=== PATIENT | female | born 1950 | race American Indian/Alaskan Native ===

== ENCOUNTER 2018-11-14 04:01 | Emergency (ER) | payer MEDICARE ==
[2018-11-14 07:58] VITALS: BP 169/102
--- NOTE | 2018-11-14 08:24 | Emergency Department Report ---
- General Chief Complaint: Wound/Laceration Stated Complaint: SKIN INFECTION Source: patient Mode of arrival: Ambulatory Limitations: No Limitations - History of Present Illness Initial Comments: This is a 68-year-old female who presents with a wound to the right lower extremity for 3 months. Past medical history prediabetes, osteoarthritis, hypertension, and bronchitis. Patient states she completed a round of antibiotics after being seen in this emergency room. She was referred to a specialist but able to follow up with them. She reported wound improves it continues to drain and very tender to touch. She denies fever, numbness or tingling, or weakness. Onset/Timin -: month(s) Extremity Location: Right: Lower Leg Place: home Patient Tetanus UTD: Yes Context: accidental Associated Symptoms: pain. denies: loss of feeling/numbness, suspect foreign body present, unable to move injured part, weakness followed by dizziness, nausea/vomiting, fever - Related Data Home Medications Medication Instructions Recorded Confirmed Last Taken Amoxicillin [Trimox CAP] 500 mg PO BID 12/23/13 12/23/13 12/22/13 Previous Rx's Medication Instructions Recorded Last Taken Type Furosemide [Lasix] 40 mg PO DAILY #10 tablet 12/23/13 Unknown Rx Ibuprofen [Motrin] 800 mg PO Q8HR PRN #15 tablet 08/13/16 Unknown Rx Chlorhexidine Gluconate [Hibiclens] 240 ml TP BID #1 liquid 09/19/18 Unknown Rx Sulfamethoxazole/Trimethoprim 1 each PO ONCE #20 tablet 09/19/18 Unknown Rx [Bactrim DS TAB] Triamter/Hctz 75-50 mg (Nf) 0.5 tab PO QDAY tablet 09/19/18 Unknown Rx [Maxzide 75-50 mg] amLODIPine [Norvasc] 5 mg PO QDAY tablet 09/19/18 Unknown Rx cephALEXin [Keflex] 500 mg PO Q8HR #30 cap 09/19/18 Unknown Rx Amlodipine Besylate [Norvasc] 5 mg PO DAILY #30 tablet 11/14/18 Unknown Rx Sulfamethoxazole/Trimethoprim 1 each PO BID #20 tablet 11/14/18 Unknown Rx [Bactrim DS TAB] Triamterene/Hydrochlorothiazid 1 each PO DAILY #30 tablet 11/14/18 Unknown Rx [Triamterene-Hctz 75-50 mg Tab] Allergies Allergy/AdvReac Type Severity Reaction Status Date / Time No Known Allergies Allergy Verified 12/22/13 23:36 ED Review of Systems ROS: Stated complaint: SKIN INFECTION Other details as noted in HPI Constitutional: denies: chills, fever Respiratory: denies: cough, shortness of breath, wheezing Cardiovascular: denies: chest pain, palpitations Gastrointestinal: denies: abdominal pain, nausea, diarrhea Musculoskeletal: denies: back pain, joint swelling, arthralgia Skin: lesions (wound to RLE). denies: rash Neurological: denies: headache, weakness, paresthesias Psychiatric: denies: anxiety, depression ED Past Medical Hx - Past Medical History Previous Medical History?: Yes Hx Hypertension: Yes Hx CVA: No Hx Heart Attack/AMI: No Hx Congestive Heart Failure: No Hx Diabetes: Yes (borderline) Hx Deep Vein Thrombosis: No Hx Pulmonary Embolism: No Hx GERD: No Hx Liver Disease: No Hx Renal Disease: No Hx Sickle Cell Disease: No Hx Arthritis: Yes (osteoarthritis) Hx Headaches / Migraines: No Hx Seizures: No Hx Kidney Stones: No Hx Psychiatric Treatment: No Hx Asthma: No Hx COPD: No Hx Tuberculosis: No Hx Dementia: No Hx HIV: No Additional medical history: bronchitis - Surgical History Past Surgical History?: Yes Hx Coronary Stent: No Hx Open Heart Surgery: No Hx Pacemaker: No Hx Internal Defibrillator: No Hx Cholecystectomy: No Hx Appendectomy: No Hx Breast Surgery: No Additional Surgical History: D&C - Social History Smoking Status: Former Smoker Substance Use Type: None - Medications Home Medications: Home Medications Medication Instructions Recorded Confirmed Last Taken Type Amoxicillin [Trimox CAP] 500 mg PO BID 12/23/13 12/23/13 12/22/13 History Furosemide [Lasix] 40 mg PO DAILY #10 tablet 12/23/13 Unknown Rx Ibuprofen [Motrin] 800 mg PO Q8HR PRN #15 tablet 08/13/16 Unknown Rx Chlorhexidine Gluconate [Hibiclens] 240 ml TP BID #1 liquid 09/19/18 Unknown Rx Sulfamethoxazole/Trimethoprim 1 each PO ONCE #20 tablet 09/19/18 Unknown Rx [Bactrim DS TAB] Triamter/Hctz 75-50 mg (Nf) 0.5 tab PO QDAY tablet 09/19/18 Unknown Rx [Maxzide 75-50 mg] amLODIPine [Norvasc] 5 mg PO QDAY tablet 09/19/18 Unknown Rx cephALEXin [Keflex] 500 mg PO Q8HR #30 cap 09/19/18 Unknown Rx Amlodipine Besylate [Norvasc] 5 mg PO DAILY #30 tablet 11/14/18 Unknown Rx Sulfamethoxazole/Trimethoprim 1 each PO BID #20 tablet 11/14/18 Unknown Rx [Bactrim DS TAB] Triamterene/Hydrochlorothiazid 1 each PO DAILY #30 tablet 11/14/18 Unknown Rx [Triamterene-Hctz 75-50 mg Tab] ED Physical Exam - General Limitations: No Limitations General appearance: alert, in no apparent distress, obese (morbidly obese) - Respiratory Respiratory exam: Present: normal lung sounds bilaterally. Absent: respiratory distress - Cardiovascular Cardiovascular Exam: Present: regular rate, normal rhythm. Absent: systolic murmur, diastolic murmur, rubs, gallop - GI/Abdominal GI/Abdominal exam: Present: soft, normal bowel sounds - Neurological Exam Neurological exam: Present: alert, oriented X3 - Psychiatric Psychiatric exam: Present: normal affect, normal mood - Skin Skin exam: Present: warm, dry, normal color, other (5 cm wound above right lateral malleolus, tenderness, central cellulitis, warmth, purulent drainage). Absent: intact, rash, cyanosis, diaphoretic, petechiae, pallor, abrasion, ecchymosis ED Course Vital Signs 11/14/18 11/14/18 11/14/18 04:09 07:57 10:44 Temperature 97.5 F L Pulse Rate 121 H 111 H 111 H Respiratory 20 Rate Blood Pressure 175/95 169/102 Blood Pressure 169/102 [Left] O2 Sat by Pulse 99 Oximetry 11/14/18 11:40 Temperature 98.1 F Pulse Rate 109 H Respiratory 18 Rate Blood Pressure Blood Pressure [Left] O2 Sat by Pulse 97 Oximetry ED Medical Decision Making - Lab Data Result diagrams: 11/14/18 08:35 11/14/18 08:29 Lab Results 11/14/18 11/14/18 11/14/18 Range/Units 04:27 08:29 08:35 WBC 7.1 (4.5-11.0) K/mm3 RBC 5.07 H (3.65-5.03) M/mm3 Hgb 13.2 (10.1-14.3) gm/dl Hct 41.5 (30.3-42.9) % MCV 82 (79-97) fl MCH 26 L (28-32) pg MCHC 32 (30-34) % RDW 15.3 H (13.2-15.2) % Plt Count 312 (140-440) K/mm3 Lymph % (Auto) 17.1 (13.4-35.0) % [place] % (Auto) 10.0 H (0.0-7.3) % Eos % (Auto) 2.2 (0.0-4.3) % Baso % (Auto) 0.6 (0.0-1.8) % Lymph # 1.2 (1.2-5.4) K/mm3 [place] # 0.7 (0.0-0.8) K/mm3 Eos # 0.2 (0.0-0.4) K/mm3 Baso # 0.0 (0.0-0.1) K/mm3 Seg Neutrophils % 70.1 H (40.0-70.0) % Seg Neutrophils # 5.0 (1.8-7.7) K/mm3 Sodium 142 (137-145) mmol/L Potassium 4.6 (3.6-5.0) mmol/L Chloride 105.9 (98-107) mmol/L Carbon Dioxide 24 (22-30) mmol/L Anion Gap 17 mmol/L BUN 16 (7-17) mg/dL Creatinine 0.7 (0.7-1.2) mg/dL Estimated GFR > 60 ml/min BUN/Creatinine Ratio 23 % Glucose 96 (65-100) mg/dL POC Glucose 102 (70-105) Calcium 9.0 (8.4-10.2) mg/dL Total Bilirubin 0.20 (0.1-1.2) mg/dL AST 19 (5-40) units/L ALT 15 (7-56) units/L Alkaline Phosphatase 87 (35-129) units/L Total Protein 7.7 (6.3-8.2) g/dL Albumin 3.5 L (3.9-5) g/dL Albumin/Globulin Ratio 0.8 % - Medical Decision Making Patient was examined by me. Blood pressure elevated and tachycardic on arrival. Patient is in no acute distress. Obtained a CMP and CBC. Both labs are unremarkable. On focused exam there is a 5 cm wound above the right lateral malleolus, tenderness, central cellulitis, and warmth. Start Bactrim DS 1 tab by mouth twice a day 10 days. Start Maxide 7550 milligrams by mouth daily and amlodipine 5 mg by mouth daily. Blood pressure and heart rate trending down, patient is asymptomatic hypertension. Referral to wound care for continued care. Patient informed of results and emergency room plan. Patient discharged home in stable condition. Follow up with PCP in 2-3 days. Critical care attestation.: If time is entered above; I have spent that time in minutes in the direct care of this critically ill patient, excluding procedure time. ED Disposition Clinical Impression: Asymptomatic hypertension Wound of right leg Qualifiers: Encounter type: subsequent encounter Qualified Code(s): S81.801D - Unspecified open wound, right lower leg, subsequent encounter Disposition: TO HOME OR SELFCARE Is pt being admited?: No Does the pt Need Aspirin: No Condition: Stable Instructions: Wound Infection (ED), Acute Wound Care (ED), Hypertension (ED) Additional Instructions: Complete full course of antibiotics as prescribed. Follow-up with wound care in the next 24-48 hours. Encourage stop smoking to reduce cardiovascular risk. Moderate caffeine consumption is acceptable. Begin and maintain aerobic exercise, with a goal of at least 30 minutes of moderate intensity, dynamic aerobic exercise (walking, jogging, cycling, or swimming) 5 days per week to total 150 minutes as tolerated or recommended by a physician. Take medication daily as prescribed. Follow up with Primary Care Provider in 1 week. Prescriptions: Amlodipine Besylate [Norvasc] 5 mg PO DAILY #30 tablet Sulfamethoxazole/Trimethoprim [Bactrim DS TAB] 1 each PO BID #20 tablet Triamterene/Hydrochlorothiazid [Triamterene-Hctz 75-50 mg Tab] 1 each PO DAILY #30 tablet Referrals: [facility] [Outside] - 3-5 Days [facility] [Provider Group] - 3-5 Days [facility] [Provider Group] - 3-5 Days Time of Disposition: 10:13
[2018-11-14 08:42] LABS: Basophils % (Auto) 0.6 % (0.0-1.8); Eosinophils # (Auto) 0.2 K/mm3 (0.0-0.4); Eosinophils % (Auto) 2.2 % (0.0-4.3); Hematocrit 41.5 % (30.3-42.9); Hemoglobin 13.2 gm/dl (10.1-14.3); Lymphocytes # (Auto) 1.2 K/mm3 (1.2-5.4); Lymphocytes % (Auto) 17.1 % (13.4-35.0); Mean Corpuscular HGB Conc 32 % (30-34); Mean Corpuscular Volume 82 fl (79-97); Monocytes # (Auto) 0.7 K/mm3 (0.0-0.8); Platelet Count 312 K/mm3 (140-440); Red Blood Count 5.07 M/mm3 (3.65-5.03); Red Cell Distribution Width 15.3 % (13.2-15.2)
[2018-11-14 08:45] LABS: Mean Corpuscular Hemoglobin 26 pg (28-32)
[2018-11-14 09:03] LABS: Alanine Aminotransferase 15 units/L (7-56); Albumin 3.5 g/dL (3.9-5); BUN/Creatinine Ratio 23; Blood Urea Nitrogen 16 mg/dL (7-17); Hemolysis Index 29
[2018-11-14] MEDS ORDERED: NORVASC PO ONE (10:06)
[2018-11-14] MEDS ORDERED: NORCO 5/325 PO ONE (11:44)
== END 2018-11-14 12:13 | disposition home or self-care (01) ==
LOC: ED 04:01
DX: S81.801D Unspecified open wound, right lower leg, subsequent encounter (principal); I10 Essential (primary) hypertension; E11.9 Type 2 diabetes mellitus without complications; Z87.891 Personal history of nicotine dependence; X58.XXXD Exposure to other specified factors, subsequent encounter
CPT/HCPCS: 36415; 80053; 82962; 85025; 99283

== ENCOUNTER 2019-01-22 11:18 | Outpatient (CLI) | payer MEDICARE ==
[2019-01-22] MEDS ORDERED: XYLOCAINE TOPICAL 4% TP ONE (12:00)
[2019-01-23] MEDS ORDERED: AD OINTMENT TP SCH (10:00)
== END 2019-01-22 11:19 | disposition home or self-care (01) ==
LOC: WOUND 11:18
PROVIDERS: ATTEND Surgery
DX: L97.818 Non-pressure chronic ulcer of other part of right lower leg with other specified severity (principal); I10 Essential (primary) hypertension; M81.0 Age-related osteoporosis without current pathological fracture; J42 Unspecified chronic bronchitis; Z87.891 Personal history of nicotine dependence
CPT/HCPCS: 99214; G0463

== ENCOUNTER 2019-12-14 15:32 | Emergency (ER) | payer MEDICARE ==
--- NOTE | 2019-12-14 16:04 | Emergency Department Report ---
Blank Doc - Documentation Documentation: 69-year-old female that presents with neck pain and throacic spine pain. This initial assessment/diagnostic orders/clinical plan/treatment(s) is/are subject to change based on patient's health status, clinical progression and re- assessment by fellow clinical providers in the ED. Further treatment and workup at subsequent clinical providers discretion. Patient/guardians urged not to elope from the ED as their condition may be serious if not clinically assessed and managed. Initial orders include: 1- Patient sent to [facility] for further evaluation and treatment 2- patient has cervical collar 3- Xrays
[2019-12-14] MEDS ORDERED: ACETAMINOPHEN 325 MG TAB PO ONE (16:05)
[2019-12-14] MEDS ORDERED: ACETAMINOPHEN 325 MG TAB ONE (16:07)
--- NOTE | 2019-12-14 17:19 | XRay Report ---
LUMBAR SPINE 3 VIEWS INDICATION / CLINICAL INFORMATION: pain. COMPARISON: None available. FINDINGS: VERTEBRAE: No fracture. 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 Mild discogenic degenerative disease L2-4 and L5-S1. FACET JOINTS:Moderate facet degenerative disease L3-S1. ADDITIONAL FINDINGS: None. Signer Name: Raji Kidd MD Signed: 12/14/2019 5:14 PM Workstation Name: [id number]
--- NOTE | 2019-12-14 17:22 | XRay Report ---
CERVICAL SPINE 4 VIEWS INDICATION / CLINICAL INFORMATION: pain. COMPARISON: None available. FINDINGS: VERTEBRAE: No fracture. No significant malalignment. DISC SPACES:Moderately advanced multilevel discogenic degenerative disease extends from C3-T1. PREVERTEBRAL SOFT TISSUES:No significant abnormality. ADDITIONAL FINDINGS: None. Signer Name: Raji Kidd MD Signed: 12/14/2019 5:18 PM Workstation Name: [id number]
[2019-12-14] MEDS ORDERED: HYDROcodone/ACETAMINOPHEN 5-325 MG TAB PO STA (23:12)
--- NOTE | 2019-12-14 23:20 | Emergency Department Report ---
ED Back Pain/Injury HPI - General Chief Complaint: Neck Pain/Injury Stated Complaint: NECK PAIN Time Seen by Provider: 12/14/19 16:02 Source: patient Limitations: No Limitations - History of Present Illness Initial Comments: 69 y/o female was in store when freezer door fell of hidges and landed on her back and down to the ground. denies head trauma or LOC MD Complaint: back pain Similar Symptoms Previously: No Radiation: none Severity: mild Quality: dull Consistency: constant Improves With: none Worsens With: none Associated Symptoms: denies other symptoms. denies: chest pain, numbness, constipation, headaches, abdominal pain, seizure, syncope - Related Data Home Medications Medication Instructions Recorded Confirmed Last Taken Amoxicillin [Trimox CAP] 500 mg PO BID 12/23/13 12/23/13 12/22/13 Previous Rx's Medication Instructions Recorded Last Taken Type Furosemide [Lasix] 40 mg PO DAILY #10 tablet 12/23/13 Unknown Rx Ibuprofen [Motrin] 800 mg PO Q8HR PRN #15 tablet 08/13/16 Unknown Rx Chlorhexidine Gluconate [Hibiclens] 240 ml TP BID #1 liquid 09/19/18 Unknown Rx Sulfamethoxazole/Trimethoprim 1 each PO ONCE #20 tablet 09/19/18 Unknown Rx [Bactrim DS TAB] Triamter/Hctz 75-50 mg (Nf) 0.5 tab PO QDAY tablet 09/19/18 Unknown Rx [Maxzide 75-50 mg] amLODIPine 5 mg PO QDAY tablet 09/19/18 Unknown Rx cephALEXin [Keflex] 500 mg PO Q8HR #30 cap 09/19/18 Unknown Rx Amlodipine Besylate [Norvasc] 5 mg PO DAILY #30 tablet 11/14/18 Unknown Rx Sulfamethoxazole/Trimethoprim 1 each PO BID #20 tablet 11/14/18 Unknown Rx [Bactrim DS TAB] Triamterene/Hydrochlorothiazid 1 each PO DAILY #30 tablet 11/14/18 Unknown Rx [Triamterene-Hctz 75-50 mg Tab] Ketorolac [Toradol] 10 mg PO Q6H PRN #10 tablet 12/14/19 Unknown Rx methOCARBAMOL [Robaxin TAB] 750 mg PO Q8H #15 tablet 12/14/19 Unknown Rx Allergies Allergy/AdvReac Type Severity Reaction Status Date / Time No Known Allergies Allergy Verified 12/22/13 23:36 ED Review of Systems ROS: Stated complaint: NECK PAIN Other details as noted in HPI Comment: All other systems reviewed and negative ED Past Medical Hx - Past Medical History Previous Medical History?: Yes Hx Hypertension: Yes Hx CVA: No Hx Heart Attack/AMI: No Hx Congestive Heart Failure: No Hx Diabetes: Yes (borderline) Hx Deep Vein Thrombosis: No Hx Pulmonary Embolism: No Hx GERD: No Hx Liver Disease: No Hx Renal Disease: No Hx Sickle Cell Disease: No Hx Arthritis: Yes (osteoarthritis) Hx Headaches / Migraines: No Hx Seizures: No Hx Kidney Stones: No Hx Psychiatric Treatment: No Hx Asthma: No Hx COPD: No Hx Tuberculosis: No Hx Dementia: No Hx HIV: No Additional medical history: bronchitis - Surgical History Past Surgical History?: Yes Hx Coronary Stent: No Hx Open Heart Surgery: No Hx Pacemaker: No Hx Internal Defibrillator: No Hx Cholecystectomy: No Hx Appendectomy: No Hx Breast Surgery: No Additional Surgical History: D&C - Social History Smoking Status: Never Smoker Substance Use Type: None - Medications Home Medications: Home Medications Medication Instructions Recorded Confirmed Last Taken Type Amoxicillin [Trimox CAP] 500 mg PO BID 12/23/13 12/23/13 12/22/13 History Furosemide [Lasix] 40 mg PO DAILY #10 tablet 12/23/13 Unknown Rx Ibuprofen [Motrin] 800 mg PO Q8HR PRN #15 tablet 08/13/16 Unknown Rx Chlorhexidine Gluconate [Hibiclens] 240 ml TP BID #1 liquid 09/19/18 Unknown Rx Sulfamethoxazole/Trimethoprim 1 each PO ONCE #20 tablet 09/19/18 Unknown Rx [Bactrim DS TAB] Triamter/Hctz 75-50 mg (Nf) 0.5 tab PO QDAY tablet 09/19/18 Unknown Rx [Maxzide 75-50 mg] amLODIPine 5 mg PO QDAY tablet 09/19/18 Unknown Rx cephALEXin [Keflex] 500 mg PO Q8HR #30 cap 09/19/18 Unknown Rx Amlodipine Besylate [Norvasc] 5 mg PO DAILY #30 tablet 11/14/18 Unknown Rx Sulfamethoxazole/Trimethoprim 1 each PO BID #20 tablet 11/14/18 Unknown Rx [Bactrim DS TAB] Triamterene/Hydrochlorothiazid 1 each PO DAILY #30 tablet 11/14/18 Unknown Rx [Triamterene-Hctz 75-50 mg Tab] Ketorolac [Toradol] 10 mg PO Q6H PRN #10 tablet 12/14/19 Unknown Rx methOCARBAMOL [Robaxin TAB] 750 mg PO Q8H #15 tablet 12/14/19 Unknown Rx ED Physical Exam - General Limitations: No Limitations General appearance: alert, in no apparent distress - Head Head exam: Present: atraumatic, normocephalic - Eye Eye exam: Present: normal appearance, PERRL, EOMI Pupils: Present: normal accommodation - ENT ENT exam: Present: normal exam, normal orophraynx, mucous membranes moist, TM's normal bilaterally - Neck Neck exam: Present: normal inspection, tenderness. Absent: meningismus, full ROM, lymphadenopathy, thyromegaly - Respiratory Respiratory exam: Present: normal lung sounds bilaterally. Absent: respiratory distress, rales, rhonchi, chest wall tenderness, accessory muscle use, decreased breath sounds - Cardiovascular Cardiovascular Exam: Present: regular rate, normal rhythm. Absent: systolic murmur, diastolic murmur, rubs, gallop - GI/Abdominal GI/Abdominal exam: Present: soft, normal bowel sounds - Extremities Exam Extremities exam: Present: normal inspection, normal capillary refill - Back Exam Back exam: Present: normal inspection, paraspinal tenderness, vertebral tenderness. Absent: CVA tenderness (R), CVA tenderness (L) - Neurological Exam Neurological exam: Present: alert, oriented X3 - Psychiatric Psychiatric exam: Present: normal affect, normal mood - Skin Skin exam: Present: warm, dry, intact, normal color. Absent: rash ED Course Vital Signs 12/14/19 12/14/19 12/14/19 16:04 17:12 21:07 Temperature 98.1 F 97.9 F Pulse Rate 105 H 100 H Respiratory 20 18 18 Rate Blood Pressure 182/112 211/106 O2 Sat by Pulse 97 97 Oximetry ED Medical Decision Making - Radiology Data Radiology results: report reviewed [facility] [address] [place] [address] XRay Report Signed Patient: MARLIN DIAZ MR#: [id number] : 1950 Acct:[id number] Age/Sex: 69 / F ADM Date: 12/14/19 Loc: ED Attending Dr: Ordering Physician: SEGUNDO GTZ NP Date of Service: 12/14/19 Procedure(s): XR spine lumbosacral 2-3V Accession Number(s): [id number] cc: SEGUNDO GTZ NP Fluoro Time In Minutes: LUMBAR SPINE 3 VIEWS INDICATION / CLINICAL INFORMATION: pain. COMPARISON: None available. FINDINGS: VERTEBRAE: No fracture. 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 Mild discogenic degenerative disease L2- 4 and L5-S1. FACET JOINTS:Moderate facet degenerative disease L3-S1. ADDITIONAL FINDINGS: None. Signer Name: Raji Kidd MD Signed: 12/14/2019 5:14 PM Workstation Name: [id number] Transcribed By: TL Dictated By: Raji Kidd MD Electronically Authenticated By: Raji Kidd MD Signed Date/Time: 12/14/19 1714 - Medical Decision Making This patient presents with back pain most consistent with lumbago. Differential diagnoses includes lumbago versus musculoskeletal spasm / strain versus sciatica. No back pain red flags on history or physical. Presentation not consistent with malignancy (lack of history of malignancy, lack of B symptoms), fracture (no trauma, no bony tenderness to palpation), cauda equina (no bowel or urinary incontinence/retention, no saddle anesthesia, no distal weakness), AAA, viscus perforation , pulmonary embolism, renal colic, pyelonephritis (afebrile, no CVAT, no urinary symptoms). xray of lumbar region shows no fracture or acute injury Plan: pain control, supportive care, reassess Critical care attestation.: If time is entered above; I have spent that time in minutes in the direct care of this critically ill patient, excluding procedure time. ED Disposition Clinical Impression: Lumbago, Neck contusion Disposition: TO HOME OR SELFCARE Is pt being admited?: No Does the pt Need Aspirin: No Condition: Stable Instructions: Acute Low Back Pain (ED), Arthralgia (ED), Back Pain (ED) Prescriptions: methOCARBAMOL [Robaxin TAB] 750 mg PO Q8H #15 tablet Ketorolac [Toradol] 10 mg PO Q6H PRN #10 tablet PRN Reason: Pain Referrals: PRIMARY CARE, [Primary Care Provider] - 3-5 Days RJ PALMER MD [Staff Physician] - 3-5 Days
[2019-12-14 23:56] VITALS: BP 166/91
== END 2019-12-15 00:20 | disposition home or self-care (01) ==
LOC: ED 15:32
DX: S10.93XA Contusion of unspecified part of neck, initial encounter (principal); M54.5 Low back pain; I10 Essential (primary) hypertension; E11.9 Type 2 diabetes mellitus without complications; M19.90 Unspecified osteoarthritis, unspecified site; Z98.890 Other specified postprocedural states; Z79.899 Other long term (current) drug therapy; X58.XXXA Exposure to other specified factors, initial encounter; Y93.89 Activity, other specified; Y92.89 Other specified places as the place of occurrence of the external cause; Y99.8 Other external cause status
CPT/HCPCS: 72040; 72100; 99283

== ENCOUNTER 2022-02-11 11:08 | Emergency (ER) | payer MEDICARE ==
[2022-02-11] MEDS ORDERED: ASPIRIN 325 MG TAB PO ONE (11:37)
[2022-02-11] MEDS ORDERED: METOPROLOL TARTRATE 5 MG/5 ML INJ IV ONE (11:54)
[2022-02-11 12:27] LABS: Basophils % (Auto) 0.6 % (0.0-1.8); Eosinophils # (Auto) 0.1 K/mm3 (0.0-0.4); Eosinophils % (Auto) 1.6 % (0.0-4.3); Hematocrit 42.6 % (30.3-42.9); Hemoglobin 13.4 gm/dl (10.1-14.3); Lymphocytes # (Auto) 0.8 K/mm3 (1.2-5.4); Mean Corpuscular HGB Conc 32 % (30-34); Mean Corpuscular Volume 82 fl (79-97); Monocytes # (Auto) 0.5 K/mm3 (0.0-0.8); Monocytes % (Auto) 8.8 % (0.0-7.3); Platelet Count 291 K/mm3 (140-440); Red Blood Count 5.17 M/mm3 (3.65-5.03); Red Cell Distribution Width 14.7 % (13.2-15.2)
[2022-02-11 12:36] LABS: INR 0.97 (0.87-1.13)
[2022-02-11 12:37] LABS: Partial Thromboplastin Time 32.9 Sec. (24.2-36.6)
[2022-02-11 13:16] LABS: Alanine Aminotransferase 10 units/L (7-56); Albumin 3.8 g/dL (3.9-5); Blood Urea Nitrogen 14 mg/dL (7-17); Calcium 9.7 mg/dL (8.4-10.2); Hemolysis Index 11
[2022-02-11 13:19] LABS: BUN/Creatinine Ratio 20
--- NOTE | 2022-02-11 13:55 | XRay Report ---
CHEST 1 VIEW 02/11/2022 12:46 PM INDICATION / CLINICAL INFORMATION: chest pain. COMPARISON: None available. FINDINGS: SUPPORT DEVICES: None. HEART / MEDIASTINUM: No significant abnormality. LUNGS / PLEURA: No significant pulmonary or pleural abnormality. No pneumothorax. ADDITIONAL FINDINGS: No significant additional findings. IMPRESSION: 1. No acute findings. Signer Name: Ricky Peace MD Signed: 02/11/2022 1:51 PM Workstation Name: [id number]
--- NOTE | 2022-02-11 14:33 | Emergency Department Report ---
ED Chest Pain HPI - General Chief Complaint: Chest Pain Stated Complaint: CHEST PAIN Time Seen by Provider: 02/11/22 11:47 Source: patient Mode of arrival: Ambulatory Limitations: Physical Limitation - History of Present Illness Initial Comments: chest pain off and on for over a month , pt had irrgial heart beat in rtiage fib , no histoyr of that , no sob, no fever no cough , pt hasn;t taken her meds over monoths -: Gradual, month(s) Onset: during rest Pain Location: epigastric Pain Radiation: none Severity scale (0 -10): 5 Improves With: nothing Worsens With: nothing Treatments Prior to Arrival: none - Related Data Home Medications Medication Instructions Recorded Confirmed Last Taken Amoxicillin [Trimox CAP] 500 mg PO BID 12/23/13 12/23/13 12/22/13 Previous Rx's Medication Instructions Recorded Last Taken Type Furosemide [Lasix] 40 mg PO DAILY #10 tablet 12/23/13 Unknown Rx Ibuprofen [Motrin] 800 mg PO Q8HR PRN #15 tablet 08/13/16 Unknown Rx Chlorhexidine Gluconate [Hibiclens] 240 ml TP BID #1 liquid 09/19/18 Unknown Rx Sulfamethoxazole/Trimethoprim 1 each PO ONCE #20 tablet 09/19/18 Unknown Rx [Bactrim DS TAB] Triamter/Hctz 75-50 mg (Nf) 0.5 tab PO QDAY tablet 09/19/18 Unknown Rx [Maxzide 75-50 mg] amLODIPine 5 mg PO QDAY tablet 09/19/18 Unknown Rx cephALEXin [Keflex] 500 mg PO Q8HR #30 cap 09/19/18 Unknown Rx Amlodipine Besylate [Norvasc] 5 mg PO DAILY #30 tablet 11/14/18 Unknown Rx Sulfamethoxazole/Trimethoprim 1 each PO BID #20 tablet 11/14/18 Unknown Rx [Bactrim DS TAB] Triamterene/Hydrochlorothiazid 1 each PO DAILY #30 tablet 11/14/18 Unknown Rx [Triamterene-Hctz 75-50 mg Tab] Ketorolac [Toradol] 10 mg PO Q6H PRN #10 tablet 12/14/19 Unknown Rx methOCARBAMOL [Robaxin TAB] 750 mg PO Q8H #15 tablet 12/14/19 Unknown Rx Allergies Allergy/AdvReac Type Severity Reaction Status Date / Time No Known Allergies Allergy Verified 12/22/13 23:36 Heart Score - HEART Score History: Slightly suspicious EKG: Normal Age: > 65 Risk factors: 1-2 risk factors Troponin: < normal limit HEART Score: 3 - EKG Read Time Time EKG Completed: 14:33 EKG Read Time: 14:33 - Critical Actions Critical Actions: 0-3 pts:0.9-1.7%risk of adverse cardiac event.Candidate for discharge ED Review of Systems ROS: Stated complaint: CHEST PAIN Other details as noted in HPI Constitutional: denies: chills, fever Eyes: denies: eye pain, eye discharge, vision change ENT: denies: ear pain, throat pain Respiratory: denies: cough, shortness of breath, wheezing Cardiovascular: denies: chest pain, palpitations Endocrine: no symptoms reported Gastrointestinal: denies: abdominal pain, nausea, diarrhea Genitourinary: denies: urgency, dysuria, discharge Musculoskeletal: denies: back pain, joint swelling, arthralgia Skin: denies: rash, lesions Neurological: denies: headache, weakness, paresthesias Psychiatric: denies: anxiety, depression Hematological/Lymphatic: denies: easy bleeding, easy bruising ED Past Medical Hx - Past Medical History Previous Medical History?: Yes Hx Hypertension: Yes Hx CVA: No Hx Heart Attack/AMI: No Hx Congestive Heart Failure: No Hx Diabetes: Yes (borderline) Hx Deep Vein Thrombosis: No Hx Pulmonary Embolism: No Hx GERD: No Hx Liver Disease: No Hx Renal Disease: No Hx Sickle Cell Disease: No Hx Arthritis: Yes (osteoarthritis) Hx Headaches / Migraines: No Hx Seizures: No Hx Kidney Stones: No Hx Psychiatric Treatment: No Hx Asthma: No Hx COPD: No Hx Tuberculosis: No Hx Dementia: No Hx HIV: No Additional medical history: bronchitis - Surgical History Past Surgical History?: Yes Hx Coronary Stent: No Hx Open Heart Surgery: No Hx Pacemaker: No Hx Internal Defibrillator: No Hx Cholecystectomy: No Hx Appendectomy: No Hx Breast Surgery: No Additional Surgical History: D&C - Social History Smoking Status: Never Smoker Substance Use Type: None - Medications Home Medications: Home Medications Medication Instructions Recorded Confirmed Last Taken Type Amoxicillin [Trimox CAP] 500 mg PO BID 12/23/13 12/23/13 12/22/13 History Furosemide [Lasix] 40 mg PO DAILY #10 tablet 12/23/13 Unknown Rx Ibuprofen [Motrin] 800 mg PO Q8HR PRN #15 tablet 08/13/16 Unknown Rx Chlorhexidine Gluconate [Hibiclens] 240 ml TP BID #1 liquid 09/19/18 Unknown Rx Sulfamethoxazole/Trimethoprim 1 each PO ONCE #20 tablet 09/19/18 Unknown Rx [Bactrim DS TAB] Triamter/Hctz 75-50 mg (Nf) 0.5 tab PO QDAY tablet 09/19/18 Unknown Rx [Maxzide 75-50 mg] amLODIPine 5 mg PO QDAY tablet 09/19/18 Unknown Rx cephALEXin [Keflex] 500 mg PO Q8HR #30 cap 09/19/18 Unknown Rx Amlodipine Besylate [Norvasc] 5 mg PO DAILY #30 tablet 11/14/18 Unknown Rx Sulfamethoxazole/Trimethoprim 1 each PO BID #20 tablet 11/14/18 Unknown Rx [Bactrim DS TAB] Triamterene/Hydrochlorothiazid 1 each PO DAILY #30 tablet 11/14/18 Unknown Rx [Triamterene-Hctz 75-50 mg Tab] Ketorolac [Toradol] 10 mg PO Q6H PRN #10 tablet 12/14/19 Unknown Rx methOCARBAMOL [Robaxin TAB] 750 mg PO Q8H #15 tablet 12/14/19 Unknown Rx ED Physical Exam - General Limitations: Physical Limitation General appearance: alert, in no apparent distress - Head Head exam: Present: atraumatic, normocephalic - Eye Eye exam: Present: normal appearance - ENT ENT exam: Present: mucous membranes moist - Neck Neck exam: Present: normal inspection - Respiratory Respiratory exam: Present: normal lung sounds bilaterally. Absent: respiratory distress - Cardiovascular Cardiovascular Exam: Present: tachycardia, irregular rhythm. Absent: systolic murmur, diastolic murmur, rubs, gallop - GI/Abdominal GI/Abdominal exam: Present: soft, normal bowel sounds - Extremities Exam Extremities exam: Present: normal inspection, pedal edema - Back Exam Back exam: Present: normal inspection - Neurological Exam Neurological exam: Present: alert, oriented X3 - Psychiatric Psychiatric exam: Present: normal affect, normal mood - Skin Skin exam: Present: warm, dry, intact, normal color. Absent: rash ED Course Vital Signs 02/11/22 02/11/22 02/11/22 11:34 11:53 12:06 Temperature 98.2 F Pulse Rate 110 H 90 Respiratory 24 Rate Blood Pressure 190/100 Blood Pressure 188/105 [Right] O2 Sat by Pulse 97 100 Oximetry ED Medical Decision Making - Lab Data Result diagrams: 02/11/22 12:10 02/11/22 12:10 - EKG Data -: EKG Interpreted by Me Rate: tachycardia - EKG Data Interpretation: no acute changes 02/11/22 14:29 initial EKG showd afib with rate of 110 , after b blockers it went down to sinus reythm - Radiology Data Radiology results: report reviewed, image reviewed - Medical Decision Making work up unremarkable , b katarina sgiven with conversion back to sinus rythm BP imrpoved , will start B blockers and refer to card OP Critical care attestation.: If time is entered above; I have spent that time in minutes in the direct care of this critically ill patient, excluding procedure time. ED Disposition Clinical Impression: Chest pain, Atrial fibrillation with RVR Disposition: HOME / SELF CARE / HOMELESS Is pt being admited?: No Does the pt Need Aspirin: No Condition: Stable Instructions: Nonspecific Chest Pain, Adult Referrals: RALPH KERN MD [Other] - 3-5 Days SATISH YANCEY MD [Staff Physician] - 3-5 Days
[2022-02-11 15:13] VITALS: BP 164/100
--- NOTE | 2022-02-12 09:35 | Electrocardiograph Report ---
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
--- NOTE | 2022-02-14 08:58 | Electrocardiograph Report ---
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
== END 2022-02-11 15:13 | disposition home or self-care (01) ==
LOC: ED 11:08
DX: I48.20 Chronic atrial fibrillation, unspecified (principal); R07.9 Chest pain, unspecified; I10 Essential (primary) hypertension
CPT/HCPCS: 36415; 71045; 80053; 82550; 83880; 84484; 85025; 85610; 85730; 93005; 96374; 99284; J9280

== ENCOUNTER 2022-02-16 05:45 | Inpatient (IN) | payer MEDICARE ==
[2022-02-16] MEDS ORDERED: ASPIRIN 325 MG TAB PO ONE (06:13)
--- NOTE | 2022-02-16 06:52 | Emergency Department Report ---
ED Chest Pain HPI - General Chief Complaint: Chest Pain Stated Complaint: CHEST PAIN PUI?: No Time Seen by Provider: 02/16/22 06:28 Source: patient, EMS Mode of arrival: Stretcher Limitations: No Limitations - History of Present Illness Initial Comments: Chief complaint: " It feels like a heart attack." HPI: This is a 71-year-old female with history of hypertension who presents with chest pain since Sunday. Patient was evaluated in this ER on Sunday. Patient has sharp heavy pain. Moderately severe. Relieved with nitroglycerin given by EMS. No previous history of cardiac disease. Mother had history of congestive heart failure. MD Complaint: chest pain -: Gradual, days(s) (4 days) Onset: during rest Pain Location: substernal Pain Radiation: none Severity: severe Severity scale (0 -10): 8 Quality: heaviness, sharp Consistency: intermittent, now resolved Improves With: nitroglycerin Worsens With: nothing Treatments Prior to Arrival: aspirin, nitroglycerin - Related Data Previous Rx's Medication Instructions Recorded Last Taken Type Metoprolol [Lopressor TAB] 50 mg PO DAILY #30 02/11/22 02/15/22 09:00 Rx Allergies Allergy/AdvReac Type Severity Reaction Status Date / Time No Known Allergies Allergy Verified 02/16/22 06:09 Heart Score - HEART Score History: Moderately suspicious EKG: Non-specific Age: > 65 Risk factors: 1-2 risk factors Troponin: < normal limit HEART Score: 5 - EKG Read Time Time EKG Completed: 06:18 EKG Read Time: 06:23 - Critical Actions Critical Actions: 4-6 pts:12-16.6% risk of adverse cardiac event. Should be admitted ED Review of Systems ROS: Stated complaint: CHEST PAIN Other details as noted in HPI Comment: All other systems reviewed and negative Constitutional: denies: chills, fever, malaise Respiratory: denies: cough, shortness of breath Cardiovascular: chest pain Gastrointestinal: denies: abdominal pain, nausea, vomiting ED Past Medical Hx - Past Medical History Previous Medical History?: Yes Hx Hypertension: Yes Hx CVA: No Hx Heart Attack/AMI: No Hx Congestive Heart Failure: No Hx Diabetes: Yes (borderline) Hx Deep Vein Thrombosis: No Hx Pulmonary Embolism: No Hx GERD: No Hx Liver Disease: No Hx Renal Disease: No Hx Sickle Cell Disease: No Hx Arthritis: Yes (osteoarthritis) Hx Headaches / Migraines: No Hx Seizures: No Hx Kidney Stones: No Hx Psychiatric Treatment: No Hx Asthma: No Hx COPD: No Hx Tuberculosis: No Hx Dementia: No Hx HIV: No Additional medical history: bronchitis - Surgical History Past Surgical History?: Yes Hx Coronary Stent: No Hx Open Heart Surgery: No Hx Pacemaker: No Hx Internal Defibrillator: No Hx Cholecystectomy: No Hx Appendectomy: No Hx Breast Surgery: No Additional Surgical History: D&C - Family History Family history: hypertension, vascular disease - Social History Smoking Status: Never Smoker Substance Use Type: None - Medications Home Medications: Home Medications Medication Instructions Recorded Confirmed Last Taken Type Metoprolol [Lopressor TAB] 50 mg PO DAILY #30 02/11/22 02/16/22 02/15/22 09:00 Rx ED Physical Exam - General Limitations: No Limitations General appearance: alert, in no apparent distress - Head Head exam: Present: atraumatic, normocephalic - Eye Eye exam: Present: normal appearance - ENT ENT exam: Present: mucous membranes moist - Neck Neck exam: Present: normal inspection, full ROM - Respiratory Respiratory exam: Present: normal lung sounds bilaterally. Absent: respiratory distress, wheezes, rales, rhonchi - Cardiovascular Cardiovascular Exam: Present: regular rate, normal rhythm, normal heart sounds. Absent: systolic murmur, diastolic murmur, rubs, gallop - GI/Abdominal GI/Abdominal exam: Present: soft, normal bowel sounds - Extremities Exam Extremities exam: Present: normal inspection - Neurological Exam Neurological exam: Present: alert, oriented X3 - Psychiatric Psychiatric exam: Present: normal affect, normal mood - Skin Skin exam: Present: warm, dry, intact, normal color. Absent: rash ED Course Vital Signs 02/16/22 02/16/22 02/16/22 06:05 08:37 08:47 Temperature 98.3 F Pulse Rate 109 H 92 H 102 H Respiratory 18 21 Rate Blood Pressure 179/111 178/85 Blood Pressure 178/85 [Left] O2 Sat by Pulse 94 98 Oximetry 02/16/22 02/16/22 08:54 10:00 Temperature Pulse Rate 90 Respiratory 15 Rate Blood Pressure Blood Pressure 158/73 [Left] O2 Sat by Pulse 98 98 Oximetry ED Medical Decision Making - Lab Data Result diagrams: 02/16/22 07:22 02/16/22 07:22 - EKG Data -: EKG Interpreted by Me - EKG Data Interpretation: nonspecific ST-T wave jeovanny 02/16/22 06:52 EKG obtained 0 618 EKG interpreted by me Sinus tachycardia rate 100 bpm normal axis normal intervals no ST elevation QS complexes in anterior leads poor R wave progression in anterior leads - Radiology Data Radiology results: report reviewed Patient Name: MARLIN DIAZ Gender: Female Date of : 1950 Referring Provider: CLEMENTINA IRBY Organization: [facility] Accession Number: [id number] Requested Date: February 16, 2022 08:29 Report Status: Final Requested Procedure: 1 Procedure Description: CT angio chest Modality: CT Findings Reporting MD: Alejo Fiore Dictation Time: February 16, 2022 08:47 Cannon Pinion Adjuster: Not available Cell Changer Date: CTA CHEST WITH IV CONTRAST INDICATION: elevated d-dimer chest pain CONTRAST: 100 cc Omnipaque 350 IV COMPARISON: Chest x-ray today, CTA chest 04/27/2010 (report unavailable) Three-plane MIP reconstructions were produced. All CT scans at this location are performed using CT dose reduction for ALARA by means of automated exposure control. NOTE: Resolution is decreased and artifact is introduced by the patient's size. FINDINGS: Marked right glenohumeral degenerative changes are seen. No significant axillary or chest wall lesions though not all chest wall visualized due to patient's size and [id number]. Visualized upper abdomen is prominent cholelithiasis though without obvious acute inflammation. No biliary dilatation. No pleural effusion. No endobronchial lesions. No pneumothorax or pneumomediastinum. Lung moran show patchy bilateral though fairly diffuse groundglass type interstitial changes most suggesting patchy pulmonary edema. No areas of consolidation. No nodules or masses. Aorta with no aneurysmal dilatation or dissection. Minimal atherosclerotic changes. Moderate opacification pulmonary arterial system. Artifact makes smaller arteries more difficult to evaluate but no obvious evidence of pulmonary thromboembolism. Mild prominence of central pulmonary arteries seen. Main pulmonary trunk has a diameter of 3.7 cm compared to ascending aortic diameter of 3.3 cm, consistent with pulmonary arterial hypertension. Coronary artery calcifications: Mild IMPRESSION: 1. No evidence of pulmonary thromboembolism 2. Interstitial lung changes suggesting mild pulmonary edema but nonspecific 3. Evidence of pulmonary arterial hypertension 4. Cholelithiasis without acute change seen Patient Name: MARLIN DIAZ Gender: Female Date of : 1950 Referring Provider: CLEMENTINA IRBY Organization: [facility] Accession Number: [id number] Requested Date: February 16, 2022 06:13 Report Status: Final Requested Procedure: 1 Procedure Description: XR chest routine 2V Modality: XR Findings Reporting MD: Cameron De Souza Dictation Time: February 16, 2022 05:53 Cannon Pinion Adjuster: Not available Cell Changer Date: CHEST 2 VIEWS INDICATION / CLINICAL INFORMATION: chest pain. COMPARISON: Chest x-ray 02/11/2022 FINDINGS: SUPPORT DEVICES: None. HEART / MEDIASTINUM: No significant abnormality. LUNGS / PLEURA: Opacities within the left lung base obscured left hemidiaphragm. Lungs are otherwise clear. No pneumothorax. BONES: Calcifications in the right glenohumeral joint is suggested. ADDITIONAL FINDINGS: Moderate beam attenuation from chest wall soft tissues. IMPRESSION: 1. Opacities in the left lung base may partly reflect technique. Signer Name: Cameron De Souza II, MD Signed: 02/16/2022 5:53 - Medical Decision Making Acute coronary syndrome, Patient's discomfort is relieved with nitroglycerin. Troponin increased from from Sunday. Incidental finding seen on CT including cholelithiasis and evidence of pulmonary arterial hypertension. These findings do not appear to contribute the patient's presentation today. I consulted cardiology who will arrange inpatient cardiac evaluation I have reviewed labs x-ray CT Critical care attestation.: If time is entered above; I have spent that time in minutes in the direct care of this critically ill patient, excluding procedure time. ED Disposition Clinical Impression: Acute coronary syndrome Disposition: ADMITTED INPATIENT Is pt being admited?: No Does the pt Need Aspirin: No Condition: Stable Referrals: SEBASTIEN REYES MD [Primary Care Provider] - 3-5 Days
--- NOTE | 2022-02-16 06:58 | XRay Report ---
CHEST 2 VIEWS INDICATION / CLINICAL INFORMATION: chest pain. COMPARISON: Chest x-ray 02/11/2022 FINDINGS: SUPPORT DEVICES: None. HEART / MEDIASTINUM: No significant abnormality. LUNGS / PLEURA: Opacities within the left lung base obscured left hemidiaphragm. Lungs are otherwise clear. No pneumothorax. BONES: Calcifications in the right glenohumeral joint is suggested. ADDITIONAL FINDINGS: Moderate beam attenuation from chest wall soft tissues. IMPRESSION: 1. Opacities in the left lung base may partly reflect technique. Signer Name: Cameron De Souza II, MD Signed: 02/16/2022 6:53 AM Workstation Name: [id number]
[2022-02-16 08:13] LABS: Basophils % (Auto) 0.7 % (0.0-1.8); Eosinophils % (Auto) 0.4 % (0.0-4.3); Hematocrit 41.6 % (30.3-42.9); Hemoglobin 13.2 gm/dl (10.1-14.3); Lymphocytes # (Auto) 0.7 K/mm3 (1.2-5.4); Lymphocytes % (Auto) 10.1 % (13.4-35.0); Mean Corpuscular HGB Conc 32 % (30-34); Mean Corpuscular Volume 82 fl (79-97); Monocytes # (Auto) 0.4 K/mm3 (0.0-0.8); Monocytes % (Auto) 6.4 % (0.0-7.3); Platelet Count 304 K/mm3 (140-440); Red Cell Distribution Width 14.8 % (13.2-15.2)
[2022-02-16 08:31] LABS: Alanine Aminotransferase 10 units/L (7-56); Albumin 4.1 g/dL (3.9-5); Blood Urea Nitrogen 16 mg/dL (7-17); Calcium 9.6 mg/dL (8.4-10.2); Hemolysis Index 18
[2022-02-16 08:33] LABS: BUN/Creatinine Ratio 27
[2022-02-16] MEDS ORDERED: NITROGLYCERIN 0.4 MG TAB SUBL SL ONE (08:39)
[2022-02-16 08:42] LABS: HDL Cholesterol 48 mg/dL (40-59); LDL Cholesterol,Direct 114 mg/dL (50-130)
--- NOTE | 2022-02-16 09:51 | Cat Scan Report ---
CTA CHEST WITH IV CONTRAST INDICATION: elevated d-dimer chest pain CONTRAST: 100 cc Omnipaque 350 IV COMPARISON: Chest x-ray today, CTA chest 04/27/2010 (report unavailable) Three-plane MIP reconstructions were produced. All CT scans at this location are performed using CT d ose reduction for ALARA by means of automated exposure control. NOTE: Resolution is decreased and artifact is introduced by the patient's size. FINDINGS: Marked right glenohumeral degenerative changes are seen. No significant axillary or chest w all lesions though not all chest wall visualized due to patient's size and [id number]. Visualized upper abdomen is prominent cholelithiasis though without obvious acute inflammation. No biliary dilat ation. No pleural effusion. No endobronchial lesions. No pneumothorax or pneumomediastinum. Lung fiel ds show patchy bilateral though fairly diffuse groundglass type interstitial changes most suggesting patchy pulmonary edema. No areas of consolidation. No nodules or masses. Aorta with no aneurysmal dilatation or dissection. Minimal atherosclerotic changes. Moderate opacification pulmonary arterial system. Artifact makes smaller arteries more difficult to e valuate but no obvious evidence of pulmonary thromboembolism. Mild prominence of central pulmonary ar teries seen. Main pulmonary trunk has a diameter of 3.7 cm compared to ascending aortic diameter of 3 .3 cm, consistent with pulmonary arterial hypertension. Coronary artery calcifications: Mild IMPRESSION: 1. No evidence of pulmonary thromboembolism 2. Interstitial lung changes suggesting mild pulmonary edema but nonspecific 3. Evidence of pulmonary arterial hypertension 4. Cholelithiasis without acute change seen Signer Name: Alejo Fiore MD Signed: 02/16/2022 9:47 AM Workstation Name: [id number]
[2022-02-16] MEDS ORDERED: oxyCODONE /ACETAMINOPHEN 5-325MG TAB PO PRN (10:22)
[2022-02-16] MEDS ORDERED: ACETAMINOPHEN 325 MG TAB PO PRN (10:22)
[2022-02-16] MEDS ORDERED: ONDANSETRON 4 MG/2 ML INJ IV PRN (10:22)
[2022-02-16] MEDS ORDERED: MORPHINE 4 MG/1 ML INJ IV PRN (10:22)
[2022-02-16] MEDS: NITROGLYCERIN 0.4 MG TAB SUBL SL PRN ×3 (11:26→21:15)
[2022-02-16] MEDS ORDERED: HEPARIN 10,000 UNITS/10 ML VIAL IV PRN (12:31)
--- NOTE | 2022-02-16 12:50 | History and Physical Report ---
History of Present Illness Date of examination: 02/16/22 Date of admission: 02/16/22 10:22 Chief complaint: Chest pain History of present illness: Patient is a 71-year-old female with history of hypertension who presented with chest pain. She was previously seen in the emergency department on Sunday with similar complaint. At that time troponin was negative and she was discharged home. She reports intermittent chest pain that is sharp and squeezing in nature lasting about 20 minutes. The pain starts substernally and moves across her chest. The chest pain is associated with shortness of breath and worsened with eating. Her pain is improved with nitroglycerin use. She has had similar chest pain in the past when under extreme stress. During time of interview patient had no active chest pain. ROS negative for palpitations, PND, orthopnea, peripheral edema, and cough. Past History Past Medical History: hypertension Past Surgical History: No surgical history Social history: no significant social history Family history: other (Motherheart failure) Medications and Allergies Allergies Allergy/AdvReac Type Severity Reaction Status Date / Time No Known Allergies Allergy Verified 02/16/22 06:09 Home Medications Medication Instructions Recorded Confirmed Last Taken Type Metoprolol [Lopressor TAB] 50 mg PO DAILY #30 02/11/22 02/16/22 02/15/22 09:00 Rx Active Meds: Active Medications Acetaminophen (Acetaminophen 325 Mg Tab) 650 mg PO Q4H PRN PRN Reason: Pain MILD(1-3)/Fever >100.5/IBRAHIM Atorvastatin Calcium (Atorvastatin 40 Mg Tab) 40 mg PO QHS PRISCILLA Heparin Sodium (Porcine) (Heparin 10,000 Units/10 Ml Vial) 6,000 unit 60 unit/kg (6000 unit) IV ONCE ONE Stop: 02/16/22 12:32 Heparin Sodium (Porcine) (Heparin 10,000 Units/10 Ml Vial) 4,000 unit 40 unit/kg (4000 unit) IV Q6H PRN PRN Reason: Anti-Xa Assay < 0.1 units/ml Sodium Chloride (Nacl 0.9% 500 Ml) 500 mls @ 50 mls/hr IV DIRECT PRISCILLA Stop: 02/16/22 22:59 Heparin Sodium/Sodium Chloride (Heparin/ 0.45% Nacl-25,000 Unit/500 Ml) 25,000 unit in 500 mls @ 29.937 mls/hr IV TITRATE PRISCILLA; Protocol Metoprolol Tartrate (Metoprolol Tartrate 50 Mg Tab) 50 mg PO BID PRISCILLA Morphine Sulfate (Morphine 4 Mg/1 Ml Inj) 4 mg IV Q4H PRN PRN Reason: Pain , Severe (7-10) Nitroglycerin (Nitroglycerin 0.4 Mg Tab Subl) 0.4 mg SL .Q5MIN PRN PRN Reason: Chest Pain Last Admin: 02/16/22 11:26 Dose: 0.4 mg Ondansetron HCl (Ondansetron 4 Mg/2 Ml Inj) 4 mg IV Q8H PRN PRN Reason: Nausea And Vomiting Oxycodone/Acetaminophen (Oxycodone /Acetaminophen 5-325mg Tab) 1 tab PO Q6H PRN PRN Reason: Pain, Moderate (4-6) Sodium Chloride (Sodium Chloride 0.9% 10 Ml Flush Syringe) 10 ml IV BID PRISCILLA Sodium Chloride (Sodium Chloride 0.9% 10 Ml Flush Syringe) 10 ml IV PRN PRN PRN Reason: LINE FLUSH Review of Systems Constitutional: no weight loss, no weight gain, no fever, no chills, no sweats, no fatigue, no weakness, no malaise Ears, nose, mouth and throat: deferred Breasts: deferred Cardiovascular: chest pain, shortness of breath, dyspnea on exertion, no orthopnea, no palpitations, no rapid/irregular heart beat, no edema, no lightheadedness, no paroxysmal nocturnal dyspnea, no high blood pressure, no leg edema Respiratory: no cough, no cough with sputum, no hemoptysis, no congestion, no wheezing, no pain on inspiration, no sleep apnea Gastrointestinal: no abdominal pain, no nausea, no vomiting, no diarrhea, no coffee ground emesis, no melena, no hematochezia Musculoskeletal: no neck stiffness, no arm numbness/tingling, no leg numbness/tingling, no morning stiffness, no limitation of motion, no frequent falls Integumentary: deferred Neurological: headaches, no paralysis, no numbness, no tingling, no seizures, no syncope, no migraines Psychiatric: no anxiety, no suicidal ideation, no sadness/tearfullness Endocrine: no cold intolerance, no heat intolerance, no excessive thirst, no excessive sweating Exam - Physical Exam Narrative exam: GENERAL: Obese. In no acute distress. HEENT: Normocephalic. Atraumatic. NECK: Supple. CHEST/LUNGS: CTAB on room air HEART/CARDIOVASCULAR: RRR. No murmur, rubs or gallops appreciated. ABDOMEN: +BS. NT/ND. SKIN: No rashes noted. NEURO: No focal motor deficit. Follows all commands. MUSCULOSKELETAL: No joint effusion EXTREMITIES: Bilateral chronic venous stasis changes. Trace edema in BLE. PSYCH: Cooperative. - Constitutional Vitals: Temp Pulse Resp BP Pulse Ox 98.3 F 77 30 H 172/88 96 02/16/22 06:05 02/16/22 12:31 02/16/22 12:31 02/16/22 12:31 02/16/22 12:31 HEART Score - HEART Score EKG: Non-specific Age: > 65 Risk factors: 1-2 risk factors Troponin: Troponin T 0.103 ng/mL (0.00-0.029) H* D 02/16/22 10:56 Troponin: < normal limit - Critical Actions Critical Actions: 4-6 pts:12-16.6% risk of adverse cardiac event. Should be admitted Results - Labs CBC & Chem 7: 02/17/22 05:51 02/17/22 05:51 Labs: Laboratory Last Values WBC 6.9 K/mm3 (4.5-11.0) 02/16/22 07:22 RBC 5.10 M/mm3 (3.65-5.03) H 02/16/22 07:22 Hgb 13.2 gm/dl (10.1-14.3) 02/16/22 07:22 Hct 41.6 % (30.3-42.9) 02/16/22 07:22 MCV 82 fl (79-97) 02/16/22 07:22 MCH 26 pg (28-32) L 02/16/22 07:22 MCHC 32 % (30-34) 02/16/22 07: RDW 14.8 % (13.2-15.2) 02/16/22 07:22 Plt Count 304 K/mm3 (140-440) 02/16/22 07:22 Lymph % (Auto) 10.1 % (13.4-35.0) L 02/16/22 07:22 Mathews % (Auto) 6.4 % (0.0-7.3) 02/16/22 07:22 Eos % (Auto) 0.4 % (0.0-4.3) 02/16/22 07:22 Baso % (Auto) 0.7 % (0.0-1.8) 02/16/22 07:22 Lymph # (Auto) 0.7 K/mm3 (1.2-5.4) L 02/16/22 07:22 Mathews # (Auto) 0.4 K/mm3 (0.0-0.8) 02/16/22 07:22 Eos # (Auto) 0.0 K/mm3 (0.0-0.4) 02/16/22 07: Baso # (Auto) 0.0 K/mm3 (0.0-0.1) 02/16/22 07:22 Seg Neutrophils % 82.4 % (40.0-70.0) H 02/16/22 07:22 Seg Neutrophils # 5.7 K/mm3 (1.8-7.7) 02/16/22 07:22 D-Dimer 501.71 ng/mlDDU (0-234) H 02/16/22 07:22 Sodium 142 mmol/L (137-145) 02/16/22 07:22 Potassium 5.0 mmol/L (3.6-5.0) 02/16/22 07:22 Chloride 104.2 mmol/L (98-107) 02/16/22 07:22 Carbon Dioxide 23 mmol/L (22-30) 02/16/22 07:22 Anion Gap 20 mmol/L 02/16/22 07:22 BUN 16 mg/dL (7-17) 02/16/22 07:22 Creatinine 0.6 mg/dL (0.6-1.2) 02/16/22 07:22 Estimated GFR > 60 ml/min 02/16/22 07:22 BUN/Creatinine Ratio 27 % 02/16/22 07:22 Glucose 113 mg/dL (65-100) H 02/16/22 07:22 Calcium 9.6 mg/dL (8.4-10.2) 02/16/22 07:22 Total Bilirubin 0.20 mg/dL (0.1-1.2) 02/16/22 07:22 AST 17 units/L (5-40) 02/16/22 07:22 ALT 10 units/L (7-56) 02/16/22 07:22 Alkaline Phosphatase 91 units/L (35-129) 02/16/22 07:22 Troponin T 0.103 ng/mL (0.00-0.029) H* D 02/16/22 10:56 Total Protein 7.7 g/dL (6.3-8.2) 02/16/22 07:22 Albumin 4.1 g/dL (3.9-5) 02/16/22 07:22 Albumin/Globulin Ratio 1.1 % 02/16/22 07:22 Triglycerides 71 mg/dL (2-149) 02/16/22 07:22 Cholesterol 173 mg/dL (50-199) 02/16/22 07:22 LDL Cholesterol Direct 114 mg/dL (50-130) 02/16/22 07:22 HDL Cholesterol 48 mg/dL (40-59) 02/16/22 07:22 Cholesterol/HDL Ratio 3.60 % 02/16/22 07:22 Assessment and Plan Assessment and plan: #NSTEMI -Initial troponin 0.050 -> 0.103 -Heparin GTT started, resume BB -Telemetry floor -plan for Cardiac catheterization tomorrow -Cardiology following, assistance appreciated #Hypertension -Patient takes metoprolol 50 mg once daily outpatient -We will resume home medications #Elevated D-dimer -D-dimer 501.71 -CT angio of the chest negative for pulmonary embolism #Obesity -Class II obesity, BMI 39 -A1C ordered -Counseled patient on the importance of weight loss, incorporating exercise, and dietary changes (lean meats, fresh fruits and vegetables, and water intake). Patient expresses understanding. -Time: +15 min #Advanced care planning -Disease education conducted, care plan discussed, diagnoses discussed, prognosis discussed, and patient acknowledges understanding with care plan -Time: +30 min Advance Directives: No VTE prophylaxis?: Chemical Plan of care discussed with patient/family: Yes
[2022-02-16] MEDS ORDERED: SODIUM CHLORIDE 0.9% 500 ML 500 ML IV SCH (13:00)
[2022-02-16] MEDS: HEPARIN/ 0.45% NACL DRIP 25,000 UNIT/500 ML BAG IV SCH (13:48)
[2022-02-16] MEDS ORDERED: HEPARIN 10,000 UNITS/10 ML VIAL IV ONE (14:00)
[2022-02-16] MEDS: METOPROLOL TARTRATE 50 MG TAB PO SCH ×2 (14:20→21:17)
--- NOTE | 2022-02-16 14:44 | Consultation ---
History of Present Illness Consult date: 02/16/22 Requesting physician: CLEMENTINA IRBY Consult reason: other (ACS) History of present illness: Patient is a 71-year-old female with a past medical history of hypertension who presented to the ED today with a complaint of chest pain that has been intermittent over the last 2 weeks. Patient reports however that within the last week her symptoms have become worse. Patient describes her chest pain as a sharp pressure that is worse at night and while lying down. She also states the pain is worsened with palpation of her chest. She does report some shortness of breath. Patient denies nausea, vomiting, lightheadedness, palpitations, or diaphoresis. Of note patient was recently seen on 02/11/2022 for complaint of chest pain. Patient was discharged home. Patient's troponin at that time for negative. Patient did state that her chest pain was relieved today with the administration of nitroglycerin. Patient is previously known to our practice. Cardiology is consulted for ACS Past History Past Medical History: hypertension Past Surgical History: No surgical history Social history: no significant social history Family history: other (Motherheart failure) Medications and Allergies Allergies Allergy/AdvReac Type Severity Reaction Status Date / Time No Known Allergies Allergy Verified 02/16/22 06:09 Home Medications Medication Instructions Recorded Confirmed Last Taken Type Metoprolol [Lopressor TAB] 50 mg PO DAILY #30 02/11/22 02/16/22 02/15/22 09:00 Rx Active Meds: Active Medications Acetaminophen (Acetaminophen 325 Mg Tab) 650 mg PO Q4H PRN PRN Reason: Pain MILD(1-3)/Fever >100.5/IBRAHIM Atorvastatin Calcium (Atorvastatin 40 Mg Tab) 40 mg PO QHS PRISCILLA Heparin Sodium (Porcine) (Heparin 10,000 Units/10 Ml Vial) 4,000 unit 40 unit/kg (4000 unit) IV Q6H PRN PRN Reason: Anti-Xa Assay < 0.1 units/ml Sodium Chloride (Nacl 0.9% 500 Ml) 500 mls @ 50 mls/hr IV DIRECT PRISCILLA Stop: 02/16/22 22:59 Heparin Sodium/Sodium Chloride (Heparin/ 0.45% Nacl-25,000 Unit/500 Ml) 25,000 unit in 500 mls @ 20 mls/hr IV TITRATE PRISCILLA; Protocol Last Admin: 02/16/22 13:48 Dose: 1,000 units/hr, 20 mls/hr Metoprolol Tartrate (Metoprolol Tartrate 50 Mg Tab) 50 mg PO BID [facility] Last Admin: 02/16/22 14:20 Dose: 50 mg Morphine Sulfate (Morphine 4 Mg/1 Ml Inj) 4 mg IV Q4H PRN PRN Reason: Pain , Severe (7-10) Nitroglycerin (Nitroglycerin 0.4 Mg Tab Subl) 0.4 mg SL .Q5MIN PRN PRN Reason: Chest Pain Last Admin: 02/16/22 11:26 Dose: 0.4 mg Ondansetron HCl (Ondansetron 4 Mg/2 Ml Inj) 4 mg IV Q8H PRN PRN Reason: Nausea And Vomiting Oxycodone/Acetaminophen (Oxycodone /Acetaminophen 5-325mg Tab) 1 tab PO Q6H PRN PRN Reason: Pain, Moderate (4-6) Sodium Chloride (Sodium Chloride 0.9% 10 Ml Flush Syringe) 10 ml IV BID [facility] Sodium Chloride (Sodium Chloride 0.9% 10 Ml Flush Syringe) 10 ml IV PRN PRN PRN Reason: LINE FLUSH Review of Systems Constitutional: no weight loss, no weight gain Ears, nose, mouth and throat: no nose pain, no nasal congestion, no nasal discharge, no sinus pain Cardiovascular: chest pain, shortness of breath, no orthopnea, no palpitations, no paroxysmal nocturnal dyspnea Respiratory: shortness of breath Gastrointestinal: no abdominal pain, no nausea, no vomiting Musculoskeletal: no neck stiffness, no neck pain, no shooting arm pain Integumentary: no rash, no pruritis, no redness Neurological: no head injury, no transient paralysis, no paralysis Psychiatric: no anxiety, no memory loss Endocrine: no cold intolerance, no heat intolerance Hematologic/Lymphatic: no easy bruising, no easy bleeding Physical Examination Vital Signs Temp Pulse Resp BP Pulse Ox 98.3 F 109 H 18 179/111 94 02/16/22 06:05 02/16/22 06:05 02/16/22 06:05 02/16/22 06:05 02/16/22 06:05 General appearance: no acute distress HEENT: Positive: PERRL Neck: Positive: trachea midline Cardiac: Positive: Reg Rate and Rhythm Lungs: Positive: Normal Breath Sounds Neuro: Positive: Grossly Intact Abdomen: Positive: Soft, Active Bowel Sounds Extremities: Present: upper extr. pulses, edema Results 02/16/22 07:22 02/16/22 07:22 Cardiac Enzymes 02/16/22 Range/Units 07:22 AST 17 (5-40) units/L Lipids 02/16/22 Range/Units 07:22 Triglycerides 71 (2-149) mg/dL Cholesterol 173 (50-199) mg/dL HDL Cholesterol 48 (40-59) mg/dL Cholesterol/HDL Ratio 3.60 % CBC 02/16/22 Range/Units 07:22 WBC 6.9 (4.5-11.0) K/mm3 RBC 5.10 H (3.65-5.03) M/mm3 Hgb 13.2 (10.1-14.3) gm/dl Hct 41.6 (30.3-42.9) % Plt Count 304 (140-440) K/mm3 Lymph # (Auto) 0.7 L (1.2-5.4) K/mm3 [place] # (Auto) 0.4 (0.0-0.8) K/mm3 Eos # (Auto) 0.0 (0.0-0.4) K/mm3 Baso # (Auto) 0.0 (0.0-0.1) K/mm3 Comprehensive Metabolic Panel 02/16/22 Range/Units 07:22 Sodium 142 (137-145) mmol/L Potassium 5.0 (3.6-5.0) mmol/L Chloride 104.2 (98-107) mmol/L Carbon Dioxide 23 (22-30) mmol/L BUN 16 (7-17) mg/dL Creatinine 0.6 (0.6-1.2) mg/dL Glucose 113 H (65-100) mg/dL Calcium 9.6 (8.4-10.2) mg/dL AST 17 (5-40) units/L ALT 10 (7-56) units/L Alkaline Phosphatase 91 (35-129) units/L Total Protein 7.7 (6.3-8.2) g/dL Albumin 4.1 (3.9-5) g/dL - Imaging and Cardiology Echo: pending Cardiac cath: pending EKG interpretations - Telemetry EKG Rhythm: Sinus Rhythm - EKG Sinus rhythms and dysrhythmias: sinus rhythm Repolarization changes or abnormalities: nonspecific abnormality, ST segment, and/or T wave Assessment and Plan Patient is a 71-year-old female with a past medical history of hypertension who presented to the ED today with a complaint of chest pain that has been intermittent and progressively worsening over the last 2 weeks NSTEMI Hypertension Obesity Plan: EKG shows sinus rhythm 99 with nonspecific T abnormalities. No acute ischemic changes. Troponin is noted to be elevated 0.05->0.1. Repeat troponin is pending. Patient currently chest pain-free Initiate aspirin, Lipitor, heparin drip, metoprolol 50 mg p.o. twice daily Patient scheduled for cardiac cath in the a.m. Patient to be n.p.o. after midnight Echo pending Discussed plan of care with patient who verbalized understanding and acknowledgment Patient seen in conjunction with Dr. Castillo who agrees with this plan of care - Patient Problems (1) NSTEMI (non-ST elevated myocardial infarction) Current Visit: Yes Status: Acute (2) Hypertension Current Visit: Yes Status: Acute (3) Obesity Current Visit: Yes Status: Acute
[2022-02-16 16:47] LABS: Hematocrit 41.8 % (30.3-42.9); Hemoglobin 13.3 gm/dl (10.1-14.3)
[2022-02-16 16:51] LABS: INR 0.96 (0.87-1.13)
[2022-02-16 17:14] LABS: Partial Thromboplastin Time 86.3 Sec. (24.2-36.6)
[2022-02-17 06:15] LABS: Basophils % (Auto) 0.7 % (0.0-1.8); Eosinophils # (Auto) 0.2 K/mm3 (0.0-0.4); Eosinophils % (Auto) 3.1 % (0.0-4.3); Hematocrit 39.8 % (30.3-42.9); Hemoglobin 12.7 gm/dl (10.1-14.3); Lymphocytes # (Auto) 1.2 K/mm3 (1.2-5.4); Lymphocytes % (Auto) 19.2 % (13.4-35.0); Mean Corpuscular HGB Conc 32 % (30-34); Mean Corpuscular Volume 82 fl (79-97); Monocytes # (Auto) 0.7 K/mm3 (0.0-0.8); Platelet Count 264 K/mm3 (140-440); Red Blood Count 4.88 M/mm3 (3.65-5.03); Red Cell Distribution Width 14.6 % (13.2-15.2)
[2022-02-17 06:26] LABS: INR 0.99 (0.87-1.13)
[2022-02-17 06:34] LABS: Blood Urea Nitrogen 11 mg/dL (7-17); Calcium 9.3 mg/dL (8.4-10.2); Hemolysis Index 2
[2022-02-17 06:35] LABS: BUN/Creatinine Ratio 16
[2022-02-17] MEDS ORDERED: ASPIRIN EC 81 MG TAB PO ONE (07:31)
[2022-02-17] MEDS ORDERED: HEPARIN 10,000 UNITS/10 ML VIAL ONE (07:50)
[2022-02-17] MEDS ORDERED: HEPARIN/NS 5000 UNIT/500ML 1,000 ML IR ONE (07:50)
[2022-02-17] MEDS ORDERED: MIDAZOLAM 2 MG/2 ML INJ ONE (07:50)
[2022-02-17] MEDS ORDERED: fentaNYL 100 MCG/2 ML INJ ONE (07:51)
[2022-02-17] MEDS ORDERED: NITROGLYCERIN SYRINGE 3 ML ONE (07:51)
[2022-02-17] MEDS ORDERED: VERAPAMIL 5 MG/2 ML INJ ONE (07:51)
[2022-02-17] MEDS ORDERED: LIDOCAINE (2%) 20 MG/1 ML VIAL 50 ML MDV INFILTRATI ONE (07:51)
[2022-02-17] MEDS ORDERED: SODIUM CHLORIDE 0.9% 500 ML 500 ML ONE (07:54)
--- NOTE | 2022-02-17 09:25 | Cardiac Catherization Report ---
DATE OF PROCEDURE: 02/17/2022 CARDIAC CATHETERIZATION REFERRING PHYSICIAN: Hospitalist service. INDICATIONS FOR PROCEDURE: The patient is a very pleasant 71-year-old -[place] female with multiple risk factors including hypertension, presents here with chest pain and findings consistent with non-ST elevation myocardial infarction, referred for left heart catheterization. Risks, benefits, potential alternatives explained at length prior to obtaining informed consent. 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 Jg's test in right hand is normal. 2 mL of 2% lidocaine is used to anesthetize the right wrist. A standard 6-Anguillan hydrophilic sheath used to cannulate the right radial artery via modified Seldinger technique. All exchanges performed to exchange a J-tip guidewire. JL3.5 catheter used to engage the left main. No dampening or ventricularization. Cineangiography performed in all projections. JR4 catheter used to cross the aortic valve under fluoroscopic guidance. Left ventriculography performed in 30-degree PAGAN and 30-degree MACEDONIAN projections via hand injections, catheter flushed. Manual pullback performed with continuous pressure monitoring. Catheter used to engage the right coronary. No dampening or ventricularization. Cineangiography performed in all projections. Next, catheter removed from the body of wire, sheath removed. Manual pressure used to achieve hemostasis. There were no immediate complications identified. I directly supervised the administration of moderate sedation with fentanyl and Versed from 8:30 a.m. to 8:59 a.m. No immediate complications. DATA: Aortic pressure is 150/90. LV pressure is 150, LVEDP of 20 mmHg. Left ventriculography reveals normal systolic performance, estimated ejection fraction 55-60%. No evidence of aortic stenosis. The patient remained in normal sinus rhythm throughout the procedure. CORONARY ANATOMY: Left main without significant disease. This is a codominant system. Left main bifurcates in left anterior descending, left circumflex. Left circumflex with a 70% stenosis proximally with a complex 90% stenosis in the mid segment involving the proximal PDA. OM trunk with 70% stenosis proximally. The LAD with a complex 95% stenosis proximally involving the ostium of the large first diagonal. ARISTEO 3 flow throughout the left system. The right coronary is codominant. There is a 70% long stenosis in the midsegment. Normal left ventricular systolic performance, estimated ejection fraction 55-60%. No evidence of aortic stenosis. CONCLUSIONS: 1. Severe and diffuse multivessel coronary artery disease as aforementioned: A. Complex 95% proximal/mid LAD involving the ostium of a moderate-sized first diagonal. 2. 70% mid left circumflex. 3. 70% OM1. 4. 90% ulcerated mid left circumflex proximal, left PDA. 5. 70% mid right coronary. 6. Normal left ventricular function, estimated ejection fraction 55-60%. 7. No evidence of aortic stenosis. These findings are consistent with severe and diffuse multivessel coronary artery disease. I believe she would be best benefited by a complete revascularization by coronary bypass surgery. This is discussed with her. She is currently chest pain free on IV heparin. Discussed with Dr. Farooq at [facility] and will be transferred for consideration of coronary artery bypass surgery. She is clinically stable and chest pain free now. Continue current medications. Long discussion with the patient regarding my findings and plan of care. She expresses understanding. TID: [id number] RECEIPT: [id number] SHLOMO/JACQUELINE
[2022-02-17] MEDS: NITROGLYCERIN 0.4 MG TAB SUBL SL PRN ×2 (09:37→15:30)
[2022-02-17] MEDS: METOPROLOL TARTRATE 50 MG TAB PO SCH ×2 (09:38→22:58)
[2022-02-17] MEDS: ASPIRIN EC 81 MG TAB PO SCH (09:40)
--- NOTE | 2022-02-17 11:33 | Discharge Summary ---
Providers - Providers Date of Admission: 02/17/22 06:00 Date of discharge: 02/17/22 Attending physician: RENNY RIVERA 02/16/22 10:07 Consult to Physician [CONS] Stat Comment: Consulting Provider: LUIS HORTON Physician Instructions: Reason For Exam: ACS 02/16/22 19:33 Physical Therapy Evaluation and Treat [CONS] Routine Comment: Reason For Exam: strengthening, assistive device - w/c vs. walker Primary care physician: SEBASTIEN REYES Hospitalization Reason for admission: CP Condition: Stable Hospital course: Patient is a 71-year-old female with a past medical history of hypertension who presented to the ED on 02/16 with a complaint of chest pain that had been intermittent over the last 2 weeks [employer]. Patient reported however that within the last week her symptoms became worse. Patient described her chest pain as a sharp pressure that is worse at night and while lying down. The patient reported associated shortness of breath but no nausea, vomiting, lightheadedness, palpitations, or diaphoresis. Of note patient was recently seen on 02/11/2022 for complaint of chest pain. Patient was discharged home. Patient's troponin at that time for negative. The patient was taken for cardiac catheterization on hospital day #2 which revealed severe and diffuse multivessel coronary artery disease with 95% proximal mid LAD lesion, 70% mid left circumflex, 70% OM1, 90% ulcerated mid left circumflex proximal, left PDA, 70% mid right coronary. EF 55-60%. Cardiology recommends complete revascularization with coronary bypass surgery. Patient will be continued on IV heparin and will be transferred to [place] of the care of Dr. Farooq. Dedicated discharge time 35 minutes Disposition: 30 STILL A PATIENT Final Discharge Diagnosis (Prints w/discharge instructions): NSTEMI, acute coronary syndrome, multivessel coronary artery disease, hypertension, obesity Core Measure Documentation - Palliative Care Palliative Care/ Comfort Measures: Not Applicable - Core Measures Any of the following diagnoses?: none Exam - Constitutional Vitals: Temp Pulse Resp BP Pulse Ox 98 F 83 18 165/94 97 02/17/22 09:34 02/17/22 11:08 02/17/22 11:08 02/17/22 09:37 02/17/22 11:08 General appearance: Present: no acute distress, well-nourished - EENT Eyes: Present: PERRL ENT: hearing intact, clear oral mucosa - Neck Neck: Present: supple, normal ROM - Respiratory Respiratory effort: normal Respiratory: bilateral: CTA - Cardiovascular Heart Sounds: Present: S1 & S2. Absent: rub, click - Extremities Extremities: pulses symmetrical, No edema Peripheral Pulses: within normal limits - Abdominal General gastrointestinal: Present: soft, non-tender, non-distended, normal bowel sounds Female genitourinary: Present: normal - Integumentary Integumentary: Present: clear, warm, dry - Musculoskeletal Musculoskeletal: gait normal, strength equal bilaterally - Psychiatric Psychiatric: appropriate mood/affect, intact judgment & insight - Neurologic Neurologic: CNII-XII intact, moves all extremities Plan Activity: up only with assistance Weight Bearing Status: Non-Weight Bearing Diet: low fat, low cholesterol, low salt Follow up with: SEBASTIEN REYES MD [Primary Care Provider] - 3-5 Days LYN MITCHELL MD [Staff Physician] - 7 Days
--- NOTE | 2022-02-17 11:55 | Progress Note ---
Assessment and Plan Patient is a 71-year-old female with a past medical history of hypertension who presented to the ED today with a complaint of chest pain that has been intermittent and progressively worsening over the last 2 weeks NSTEMI CAD Hypertension Obesity Echo 02/16/2022-EF 50 to 55%. Mild diastolic dysfunction is present impaired relaxation pattern. Right ventricular systolic function is normal. No pericardial effusion Cardiac cath 02/17/2022-severe and diffuse multivessel coronary artery disease 95% proximal/mid LAD, 70% mid circumflex, 70% OM1, 90% ulcerated mid left circumflex proximal, 70% mid right coronary. No aortic stenosis Plan: Patient for cardiac cath this a.m. Results noted above. Patient tolerated procedure well with no complications It is felt that patient would benefit from revascularization/bypass. Patient to be transferred to [place] for further intervention pending bed availability. Dr. Farooq is the accepting physician Continue aspirin, Lipitor, heparin drip, metoprolol 50 mg p.o. twice daily Continue heparin drip Discussed plan of care with patient who verbalized understanding and acknowledgment Patient seen in conjunction with Dr. Castillo who agrees with this plan of care - Patient Problems (1) NSTEMI (non-ST elevated myocardial infarction) Current Visit: Yes Status: Acute (2) Hypertension Current Visit: Yes Status: Acute (3) Obesity Current Visit: Yes Status: Acute Subjective Date of service: 02/17/22 Principal diagnosis: NSTEMI Interval history: Patient for cardiac cath this a.m. Patient sinus 80s to 90s on monitor Objective Vital Signs Temp Pulse Pulse Resp BP BP Pulse Ox 02/17/22 11:08 83 18 97 02/17/22 09:37 88 165/94 02/17/22 09:34 98 F 84 18 165/94 99 02/17/22 04:00 97.5 F L 66 18 145/71 99 02/17/22 00:00 98.3 F 75 18 147/80 97 02/16/22 21:15 71 20 143/81 02/16/22 20:16 97 02/16/22 20:12 82 02/16/22 19:33 98.6 F 84 18 163/91 99 02/16/22 17:36 80 02/16/22 16:07 65 16 98 02/16/22 16:00 98.7 F 66 20 165/88 02/16/22 12:41 66 28 H 172/88 98 02/16/22 12:31 77 30 H 172/88 96 02/16/22 12:15 69 27 H 148/90 98 02/16/22 12:01 67 30 H 148/90 97 - Physical Examination General: No Apparent Distress HEENT: Positive: PERRL Neck: Positive: trachea midline Cardiac: Positive: Reg Rate and Rhythm Lungs: Positive: Normal Breath Sounds Neuro: Positive: Grossly Intact Abdomen: Positive: Soft, Active Bowel Sounds Skin: Negative: Rash, Suspicious Lesions, Ulceration Extremities: Present: upper extr. pulses, edema - Labs and Meds Coagulation 02/16/22 02/17/22 Range/Units 16:31 05:51 PT 13.8 14.2 (12.2-14.9) Sec. INR 0.96 0.99 (0.87-1.13) APTT 86.3 H* (24.2-36.6) Sec. CBC 02/16/22 02/17/22 Range/Units 16:31 05:51 WBC 6.2 (4.5-11.0) K/mm3 RBC 4.88 (3.65-5.03) M/mm3 Hgb 13.3 12.7 (10.1-14.3) gm/dl Hct 41.8 39.8 (30.3-42.9) % Plt Count 335 264 (140-440) K/mm3 Lymph # (Auto) 1.2 (1.2-5.4) K/mm3 [place] # (Auto) 0.7 (0.0-0.8) K/mm3 Eos # (Auto) 0.2 (0.0-0.4) K/mm3 Baso # (Auto) 0.0 (0.0-0.1) K/mm3 Comprehensive Metabolic Panel 02/17/22 Range/Units 05:51 Sodium 144 (137-145) mmol/L Potassium 4.3 (3.6-5.0) mmol/L Chloride 106.2 (98-107) mmol/L Carbon Dioxide 30 D (22-30) mmol/L BUN 11 (7-17) mg/dL Creatinine 0.7 (0.6-1.2) mg/dL Glucose 97 (65-100) mg/dL Calcium 9.3 (8.4-10.2) mg/dL - Imaging and Cardiology Echo: report reviewed Cardiac cath: report reviewed - Telemetry EKG Rhythm: Sinus Rhythm - EKG Sinus rhythms and dysrhythmias: sinus rhythm Repolarization changes or abnormalities: nonspecific abnormality, ST segment, and/or T wave
[2022-02-17] MEDS ORDERED: PNEUMOCOCCAL 23 Valent 0.5 ML VIAL IM ONE (12:00)
[2022-02-17] MEDS ORDERED: HYDROcodone/ACETAMINOPHEN 5-325 MG TAB PO PRN (12:25)
[2022-02-17] MEDS ORDERED: traMADol 50 MG TAB PO PRN (12:25)
[2022-02-17] MEDS: HEPARIN/ 0.45% NACL DRIP 25,000 UNIT/500 ML BAG IV SCH (15:33)
--- NOTE | 2022-02-17 17:54 | Electrocardiograph Report ---
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
--- NOTE | 2022-02-17 18:08 | Electrocardiograph Report ---
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
[2022-02-18 04:55] LABS: Hematocrit 35.9 % (30.3-42.9); Hemoglobin 11.7 gm/dl (10.1-14.3)
[2022-02-18] MEDS: NITROGLYCERIN 0.4 MG TAB SUBL SL PRN (08:50)
[2022-02-18 09:27] VITALS: BP 143/77
[2022-02-18] MEDS: METOPROLOL TARTRATE 50 MG TAB PO SCH (09:28)
[2022-02-18] MEDS: ASPIRIN EC 81 MG TAB PO SCH (09:28)
--- NOTE | 2022-02-18 10:21 | Progress Note ---
Assessment and Plan This is a 71-year-old female with a past medical history of hypertension who presented to the ED today with a complaint of chest pain that has been intermittent and progressively worsening over the last 2 weeks NSTEMI CAD Hypertension Obesity Echo 02/16/2022-EF 50 to 55%. Mild diastolic dysfunction is present impaired relaxation pattern. Right ventricular systolic function is normal. No pericardial effusion Cardiac cath 02/17/2022-severe and diffuse multivessel coronary artery disease 95% proximal/mid LAD, 70% mid circumflex, 70% OM1, 90% ulcerated mid left circumflex proximal, 70% mid right coronary. No aortic stenosis Patient is clinically stable. She is being transferred to [facility] for consideration of coronary artery bypass surgery. She is chest pain-free. Continue aspirin, IV heparin, beta-katarina, statin. Long discussion again today regarding our findings and plan of care. - Patient Problems (1) Acute coronary syndrome Current Visit: Yes Status: Acute (2) Hypertension Current Visit: Yes Status: Acute (3) NSTEMI (non-ST elevated myocardial infarction) Current Visit: Yes Status: Acute (4) Obesity Current Visit: Yes Status: Acute (5) Atrial fibrillation with RVR Current Visit: No Status: Acute Subjective Date of service: 02/18/22 Principal diagnosis: NSTEMI Interval history: Patient is doing great this morning. No chest pain or shortness of breath. Feels better. Objective Vital Signs Temp Pulse Pulse Resp BP BP Pulse Ox 02/18/22 08:45 98.7 F 81 17 143/77 96 02/17/22 23:30 97 02/17/22 23:23 98.2 F 76 18 160/83 95 02/17/22 20:15 76 02/17/22 19:08 98.8 F 95 H 18 169/92 96 02/17/22 15:26 98.2 F 76 20 151/73 97 02/17/22 11:30 140/87 02/17/22 11:15 127/75 02/17/22 11:08 83 18 97 02/17/22 11:00 142/79 02/17/22 10:45 134/73 02/17/22 10:30 66 142/78 142/78 02/17/22 10:26 132/70 02/17/22 10:23 132/70 - Physical Examination General: No Apparent Distress HEENT: Positive: PERRL Neck: Positive: trachea midline Neuro: Positive: Grossly Intact Abdomen: Positive: Soft, Active Bowel Sounds Skin: Negative: Rash, Suspicious Lesions, Ulceration Extremities: Present: upper extr. pulses, edema - Labs and Meds CBC 02/18/22 Range/Units 03:52 Hgb 11.7 (10.1-14.3) gm/dl Hct 35.9 (30.3-42.9) % Plt Count 281 (140-440) K/mm3 - Imaging and Cardiology Echo: report reviewed Cardiac cath: report reviewed - EKG Sinus rhythms and dysrhythmias: sinus rhythm Repolarization changes or abnormalities: nonspecific abnormality, ST segment, and/or T wave
--- NOTE | 2022-02-18 11:59 | Progress Note ---
Assessment and Plan Assessment and plan: Patient is a 71-year-old female with a past medical history of hypertension who presented to the ED today with a complaint of chest pain that has been intermittent and progressively worsening over the last 2 weeks. The patient was admitted with diagnosis below NSTEMI CAD Hypertension Obesity Echo 02/16/2022-EF 50 to 55%. Mild diastolic dysfunction is present impaired relaxation pattern. Right ventricular systolic function is normal. No pericardial effusion Cardiac cath 02/17/2022-severe and diffuse multivessel coronary artery disease 95% proximal/mid LAD, 70% mid circumflex, 70% OM1, 90% ulcerated mid left circumflex proximal, 70% mid right coronary. No aortic stenosis Plan: Patient for cardiac cath this a.m. Results noted above. Patient tolerated procedure well with no complications It is felt that patient would benefit from revascularization/bypass. Patient to be transferred to [place] for further intervention pending bed availability. Dr. Farooq is the accepting physician Continue aspirin, Lipitor, heparin drip, metoprolol 50 mg p.o. twice daily Continue heparin drip History Interval history: No new issues overnight Hospitalist Physical - Constitutional Vitals: Temp Pulse Resp BP Pulse Ox 98.7 F 66 18 143/77 97 02/18/22 08:45 02/18/22 10:30 02/18/22 10:30 02/18/22 08:45 02/18/22 10:30 General appearance: Present: no acute distress, well-nourished - EENT Eyes: Present: PERRL, EOM intact ENT: hearing intact, clear oral mucosa, dentition normal - Neck Neck: Present: supple, normal ROM - Respiratory Respiratory effort: normal Respiratory: bilateral: CTA - Cardiovascular Rhythm: regular Heart Sounds: Present: S1 & S2. Absent: gallop, rub - Extremities Extremities: no ischemia, No edema, Full ROM - Abdominal General gastrointestinal: soft, non-tender, non-distended, normal bowel sounds - Integumentary Integumentary: Present: clear, warm, dry - Neurologic Neurologic: CNII-XII intact, moves all extremities HEART Score - HEART Score EKG: Non-specific Age: > 65 Risk factors: 1-2 risk factors Troponin: Troponin T 0.094 ng/mL (0.00-0.029) H 02/16/22 16:31 Troponin: < normal limit - Critical Actions Critical Actions: 4-6 pts:12-16.6% risk of adverse cardiac event. Should be admitted Results - Labs CBC & Chem 7: 02/18/22 03:52 02/17/22 05:51 Labs: Laboratory Last Values WBC 6.2 K/mm3 (4.5-11.0) 02/17/22 05:51 RBC 4.88 M/mm3 (3.65-5.03) 02/17/22 05:51 Hgb 11.7 gm/dl (10.1-14.3) 02/18/22 03:52 Hct 35.9 % (30.3-42.9) 02/18/22 03:52 MCV 82 fl (79-97) 02/17/22 05:51 MCH 26 pg (28-32) L 02/17/22 05:51 MCHC 32 % (30-34) 02/17/22 05:51 RDW 14.6 % (13.2-15.2) 02/17/22 05:51 Plt Count 281 K/mm3 (140-440) 02/18/22 03:52 Lymph % (Auto) 19.2 % (13.4-35.0) 02/17/22 05:51 [place] % (Auto) 11.0 % (0.0-7.3) H 02/17/22 05:51 Eos % (Auto) 3.1 % (0.0-4.3) 02/17/22 05:51 Baso % (Auto) 0.7 % (0.0-1.8) 02/17/22 05:51 Lymph # (Auto) 1.2 K/mm3 (1.2-5.4) 02/17/22 05:51 [place] # (Auto) 0.7 K/mm3 (0.0-0.8) 02/17/22 05:51 Eos # (Auto) 0.2 K/mm3 (0.0-0.4) 02/17/22 05:51 Baso # (Auto) 0.0 K/mm3 (0.0-0.1) 02/17/22 05:51 Seg Neutrophils % 66.0 % (40.0-70.0) 02/17/22 05:51 Seg Neutrophils # 4.1 K/mm3 (1.8-7.7) 02/17/22 05:51 PT 14.2 Sec. (12.2-14.9) 02/17/22 05:51 INR 0.99 (0.87-1.13) 02/17/22 05:51 APTT 86.3 Sec. (24.2-36.6) H* 02/16/22 16:31 D-Dimer 501.71 ng/mlDDU (0-234) H 02/16/22 07:22 Heparin Anti-Xa Level 0.65 U.I./ml (0.3-0.7) 02/18/22 03:52 Sodium 144 mmol/L (137-145) 02/17/22 05:51 Potassium 4.3 mmol/L (3.6-5.0) 02/17/22 05:51 Chloride 106.2 mmol/L (98-107) 02/17/22 05:51 Carbon Dioxide 30 mmol/L (22-30) D 02/17/22 05:51 Anion Gap 12 mmol/L 02/17/22 05:51 BUN 11 mg/dL (7-17) 02/17/22 05:51 Creatinine 0.7 mg/dL (0.6-1.2) 02/17/22 05:51 Estimated GFR > 60 ml/min 02/17/22 05:51 BUN/Creatinine Ratio 16 % 02/17/22 05:51 Glucose 97 mg/dL (65-100) 02/17/22 05:51 POC Glucose 125 mg/dL (70-105) H 02/16/22 18:26 Hemoglobin A1c 5.9 % (4-6) 02/16/22 07:22 Calcium 9.3 mg/dL (8.4-10.2) 02/17/22 05:51 Total Bilirubin 0.20 mg/dL (0.1-1.2) 02/16/22 07:22 AST 17 units/L (5-40) 02/16/22 07:22 ALT 10 units/L (7-56) 02/16/22 07:22 Alkaline Phosphatase 91 units/L (35-129) 02/16/22 07:22 Troponin T 0.094 ng/mL (0.00-0.029) H 02/16/22 16:31 Total Protein 7.7 g/dL (6.3-8.2) 02/16/22 07:22 Albumin 4.1 g/dL (3.9-5) 02/16/22 07:22 Albumin/Globulin Ratio 1.1 % 02/16/22 07:22 Triglycerides 71 mg/dL (2-149) 02/16/22 07:22 Cholesterol 173 mg/dL (50-199) 02/16/22 07:22 LDL Cholesterol Direct 114 mg/dL (50-130) 02/16/22 07:22 HDL Cholesterol 48 mg/dL (40-59) 02/16/22 07:22 Cholesterol/HDL Ratio 3.60 % 02/16/22 07:22 Palmer/IV: Voiding Method External Female Catheter Active Medications - Current Medications Current Medications: Generic Name Dose Route Start Last Admin Trade Name Freq PRN Reason Stop Dose Admin Acetaminophen 650 mg 02/16/22 10:22 Acetaminophen 325 Mg Tab PO Q4H PRN Pain MILD(1-3)/Fever >100.5/IBRAHIM Hydrocodone Bitart/Acetaminophen 1 each 02/17/22 12:25 Hydrocodone/Acetaminophen 5-325 Mg Tab PO Q4H PRN Pain, Moderate (4-6) Aspirin 81 mg 02/17/22 10:00 02/18/22 09:28 Aspirin Ec 81 Mg Tab PO 81 mg QDAY PRISCILLA Administration Atorvastatin Calcium 40 mg 02/16/22 22:00 02/17/22 22:58 Atorvastatin 40 Mg Tab PO 40 mg QHS PRISCILLA Administration Heparin Sodium (Porcine) 4,000 unit 02/16/22 12:31 Heparin 10,000 Units/10 Ml Vial 40 unit/kg (4000 unit) IV Q6H PRN Anti-Xa Assay < 0.1 units/ml Heparin Sodium/Sodium Chloride 25,000 unit in 500 mls @ 20 mls/hr 02/16/22 14:00 02/18/22 04:00 Heparin/ 0.45% Nacl-25,000 Unit/500 Ml IV 1,250 units/hr TITRATE PRISCILLA 25 mls/hr Titration Protocol 1,000 UNITS/HR Metoprolol Tartrate 50 mg 02/16/22 13:00 02/18/22 09:28 Metoprolol Tartrate 50 Mg Tab PO 50 mg BID PRISCILLA Administration Morphine Sulfate 4 mg 02/16/22 10:22 02/17/22 15:46 Morphine 4 Mg/1 Ml Inj IV 4 mg Q4H PRN Administration Pain , Severe (7-10) Nitroglycerin 0.4 mg 02/16/22 10:24 02/18/22 08:50 Nitroglycerin 0.4 Mg Tab Subl SL 0.4 mg .Q5MIN PRN Administration Chest Pain Ondansetron HCl 4 mg 02/16/22 10:22 Ondansetron 4 Mg/2 Ml Inj IV Q8H PRN Nausea And Vomiting Oxycodone/Acetaminophen 1 tab 02/16/22 10:22 Oxycodone /Acetaminophen 5-325mg Tab PO Q6H PRN Pain, Moderate (4-6) Sodium Chloride 10 ml 02/16/22 22:00 02/18/22 09:28 Sodium Chloride 0.9% 10 Ml Flush Syringe IV 10 ml BID PRISCILLA Administration Sodium Chloride 10 ml 02/16/22 10:22 Sodium Chloride 0.9% 10 Ml Flush Syringe IV PRN PRN LINE FLUSH Tramadol HCl 50 mg 02/17/22 12:25 Tramadol 50 Mg Tab PO Q4H PRN Pain, Mild (1-3)
--- NOTE | 2022-02-19 09:05 | Electrocardiograph Report ---
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 CHANGE Electronically Signed On 02-19-2022 9:04:29 EDT by Víctor Krause
== END 2022-02-18 11:30 | disposition short-term general hospital (02) | DRG 281 ==
LOC: ED 05:45 → 4A 10:22 → OBSVTOIN 02-17 06:00
PROVIDERS: ADMIT Student in an Organized Health Care Education/Training Program; ATTEND Hospitalist
PROC: 4A023N7 Measurement of Cardiac Sampling and Pressure, Left Heart, Percutaneous Approach (ICD-10-PCS; principal; 2022-02-17)
PROC: B2111ZZ Fluoroscopy of Multiple Coronary Arteries using Low Osmolar Contrast (ICD-10-PCS; 2022-02-17)
PROC: B2151ZZ Fluoroscopy of Left Heart using Low Osmolar Contrast (ICD-10-PCS; 2022-02-17)
DX: I21.4 Non-ST elevation (NSTEMI) myocardial infarction (principal); Z68.43 Body mass index [BMI] 50.0-59.9, adult; I24.9 Acute ischemic heart disease, unspecified; I10 Essential (primary) hypertension; E66.9 Obesity, unspecified; E11.9 Type 2 diabetes mellitus without complications; I25.10 Atherosclerotic heart disease of native coronary artery without angina pectoris; I48.91 Unspecified atrial fibrillation
CPT/HCPCS: 36415; 71046; 71275; 80048; 80053; 80061; 82962; 83036; 84484; 85014; 85018; 85025; 85049; 85379; 85520; 85610; 85730; 93005; 93306; 93458; G0378; J1815; J3490; C1894; C8929; J1644; J2250; J2270; J3010; J7040; Q9967